=== PATIENT | male | born 1985 ===

== ENCOUNTER 2019-05-04 15:11 | Outpatient (CLI) | payer MEDICAID, SELFPAY ==
--- NOTE | 2019-05-04 15:30 | DI.RAD_ITS ---
SYMPTOMS/DIAGNOSIS: LEFT FOOT PAIN ANTERIORLY FOR TWO WEEKS, NO INJURY, M79.672 LEFT FOOT: Three views were obtained. No bony or soft tissue abnormality seen.
== END 2019-05-04 15:31 ==
PROVIDERS: PCP Nurse Practitioner; Visit Provider Nurse Practitioner
DX: M79.672 Pain in left foot (principal)
CPT/HCPCS: 73630